=== PATIENT | female | born 1995 | race African-American/Black ===

== ENCOUNTER 2024-03-16 12:26 | Emergency (ER) | payer OTHER, MEDICAID ==
[~2024-03-16] VITALS: Ht 165.1 cm; Wt 63.5 kg
[2024-03-16] MEDS: HYDROcodone-ACET 10/325MG TAB PO ONE (13:50)
[2024-03-16] MEDS: levETIRAcetam 500 MG TAB PO ONE (13:50)
[2024-03-16 14:27] LABS: Urine Bacteria FEW /hpf (None Seen); Urine Blood Negative /uL (Negative); Urine Clarity Clear (Clear); Urine Color Light-Yellow (Yellow); Urine Protein, UAD Negative (Negative); Urine Specific Gravity 1.005 (1.001-1.035); Urine Urobilinogen Normal (Negative); Urine WBC 1 /hpf (0 - 5); Urine pH 6.5 (5.0-9.0)
[2024-03-16 14:38] LABS: Basophils # (auto) 0 10 ^3/uL (0-0.2); Eosinophils # (auto) 0.1 10 ^3/uL (0-0.8); Eosinophils % (auto) 0.5 % (0.0-7.0); Hemoglobin 8.3 g/dL (12.2-16.2); Monocytes # (auto) 0.9 10 ^3/uL (0-1.3)
[2024-03-16 14:40] LABS: Basophils % (auto) 0.1 % (0.0-2.0); Hematocrit 23.9 % (36.0-46.0); Lymphocytes # (auto) 2.4 10 ^3/uL (0.4-5.4); Lymphocytes % (auto) 23.7 % (10.0-50.0); Mean Corpuscular Hemoglobin 40.7 pg (28.0-32.0); Mean Corpuscular Hgb Conc. 34.7 g/dL (32.0-36.0); Mean Corpuscular Volume 117.2 fL (80.0-100.0); Monocytes % (auto) 8.5 % (0.0-12.0); Neutrophils # (auto) 6.8 10 ^3/uL (1.6-8.6); Neutrophils % (auto) 67.2 % (37.0-80.0); Nucleated Red Blood Cells % 3.6 %; Red Blood Cells 2.04 10^6/uL (4.0-5.20); Red Cell Distribution Width 19.6 % (11.8-14.3); White Blood Cell 10.2 10^3/uL (4.4-10.8)
[2024-03-16 14:48] LABS: Chloride 113 mmol/L (98-107); Potassium 4.3 mmol/L (3.5-5.1); Sodium 139 mmol/L (136-145)
[2024-03-16 14:49] LABS: Anion Gap 9 (5-15); Calcium 8.9 mg/dL (8.7-10.4); Carbon Dioxide 17 mmol/L (20-30)
[2024-03-16 14:54] LABS: BUN/Creatinine Ratio 16.4 (10.0-20.0); Blood Urea Nitrogen 10 mg/dL (9-23); Glucose 88 mg/dL (74-106)
[2024-03-16 15:57] VITALS: PULSE 62; RESP 16; O2SAT 100
[2024-03-16] MEDS: SODIUM CHLORIDE 0.9% 1,000 ML IV ONE ×3 (18:50→21:36)
[2024-03-16 23:32] VITALS: BP 114/40; PULSE 62; RESP 16; O2SAT 100
[2024-03-16] MEDS ORDERED: ZOFR4T PO (23:41)
[2024-03-16] MEDS ORDERED: FER325T PO (23:41)
== END 2024-03-17 00:49 | disposition home or self-care (01) ==
LOC: EDBD 12:26 → ER 12:26
DX: O99.352 Diseases of the nervous system complicating pregnancy, second trimester (principal); R10.2 Pelvic and perineal pain; O99.012 Anemia complicating pregnancy, second trimester; G40.909 Epilepsy, unspecified, not intractable, without status epilepticus; Z3A.16 16 weeks gestation of pregnancy
CPT/HCPCS: 36415; 76805; 80048; 81001; 81025; 83605; 84484; 84702; 85025; 96360; 96361; 99285; J7030